=== PATIENT | female | born 1970 | race Two or more races ===

== ENCOUNTER 2022-01-15 09:28 | Outpatient (CLI) | payer OTHER | END 2022-01-15 09:38 | disposition home or self-care (01) | LOC: SONOGRAMA 09:28 | PROVIDERS: ATTEND General Practice | DX: M79.641 Pain in right hand (principal); M79.644 Pain in right finger(s) ==

== ENCOUNTER 2023-03-21 08:05 | Outpatient (CLI) | payer OTHER | END 2023-03-21 08:06 | disposition home or self-care (01) | LOC: NUCLEAR 08:05 | DX: I20.9 Angina pectoris, unspecified (principal) ==